=== PATIENT | female | born 1955 | race Caucasian/White ===

== ENCOUNTER 2018-04-18 03:52 | Emergency (ER) | payer SELFPAY ==
[~2018-04-18] VITALS: Ht 160 cm; Wt 56.7 kg
[2018-04-18 04:25] VITALS: BP_SYST 118
--- NOTE | 2018-04-18 04:25 | NUR ---
Patient to ER bed 06 to gown for evaluation. Side rails up.
--- NOTE | 2018-04-18 04:30 | NUR ---
Patient ambulatory to ED a/o x 4 with c/o right lower jaw pain. Reports recently cracking tooth and developing abscess. Moderate swelling noted. Pain radiates to throat. Did not medicate. No stridor or SOB. Afebrile.
--- NOTE | 2018-04-18 05:02 | NUR ---
ER Dr. Diez at bedside examining patient.
[2018-04-18] MEDS ORDERED: CLINDAMYCIN HCL 150 MG CAPSULE PO ONE (05:30)
[2018-04-18] MEDS ORDERED: ACETAMINOPHEN/CODEINE 300 MG-30 MG TABLET PO ONE (05:30)
[2018-04-18 05:35] VITALS: BP_SYST 118
--- NOTE | 2018-04-18 05:35 | NUR ---
Patient given written and verbal discharge instructions and verbalizes understanding. ER MD discussed with patient the results and treatment provided. Patient in stable condition. ID arm band removed. Rx of Clindamycin given. Patient educated on pain management and to follow up with PMD in 2-3 days. Pain Scale 0/10 Opportunity for questions provided and answered. Medication side effect fact sheet provided.
== END 2018-04-18 05:35 | disposition home or self-care (01) ==
LOC: SED 03:52
DX: K04.7 Periapical abscess without sinus (principal); Z88.0 Allergy status to penicillin; Z88.1 Allergy status to other antibiotic agents
CPT/HCPCS: 99283